=== PATIENT | male | born 1990 | race African-American/Black ===

== ENCOUNTER 2019-04-09 20:54 | Emergency (ER) | payer BC ==
[~2019-04-09] VITALS: Ht 167.6 cm; Wt 93.9 kg
[2019-04-09] MEDS ORDERED: NOVOLIN R100 UNIT/1 (21:03)
[2019-04-09 22:58] VITALS: BP 107/63
== END 2019-04-09 22:58 | disposition home or self-care (01) ==
LOC: ER 20:54
DX: S61.216A Laceration without foreign body of right little finger without damage to nail, initial encounter (principal); Z91.048 Other nonmedicinal substance allergy status; W26.0XXA Contact with knife, initial encounter; Y93.89 Activity, other specified; Y92.89 Other specified places as the place of occurrence of the external cause; Y99.8 Other external cause status